=== PATIENT | female | born 1945 | race Caucasian/White ===

== ENCOUNTER 2019-12-28 09:39 | Outpatient (CLI) | payer OTHER, SELFPAY ==
--- NOTE | 2019-12-28 09:52 | MM_ITS ---
WS: [id number] BILATERAL DIGITAL SCREENING MAMMOGRAPHY WITH CAD CLINICAL INFORMATION: SCREENING HISTORY: Screening mammogram. No current complaints. COMPARISON: December 02, 2018 TECHNIQUE: Bilateral CC and MLO views. FINDINGS: The breasts are composed of heterogeneous fibroglandular density tissue, which can limit the detectio n of small underlying mass lesions. No suspicious mass, asymmetry, calcifications, or architectural d istortion. No evidence of malignancy. Vascular calcification. Lucent centered calcifications. MM/[place] [id number] IMPRESSION: BI-RADS: 2-Benign FOLLOW UP: 1 Year Follow-up Recommend return to annual screening mammography.
== END 2019-12-28 09:40 | disposition home or self-care (01) ==
LOC: RADSHAW 09:44
PROVIDERS: PCP Nurse Practitioner Family; Visit Provider Nurse Practitioner Family
DX: Z12.31 Encounter for screening mammogram for malignant neoplasm of breast (principal)
CPT/HCPCS: 77067

== ENCOUNTER → 2020-03-15 09:45 | Outpatient (BNVA) | payer OTHER, SELFPAY | PROVIDERS: PCP Nurse Practitioner Family; Visit Provider Nurse Practitioner Family | DX: R10.2 Pelvic and perineal pain (principal); N39.0 Urinary tract infection, site not specified | CPT/HCPCS: 80053; 81003; 87086 ==

== ENCOUNTER → 2020-04-04 12:04 | Outpatient (BNVA) | payer OTHER, SELFPAY | PROVIDERS: PCP Nurse Practitioner Family; Visit Provider Nurse Practitioner Family | DX: Z12.4 Encounter for screening for malignant neoplasm of cervix (principal); L43.0 Hypertrophic lichen planus | CPT/HCPCS: 87070; 87205; 88175 ==

== ENCOUNTER → 2020-09-06 12:58 | Outpatient (BNVA) | payer OTHER, SELFPAY | PROVIDERS: PCP Nurse Practitioner Family; Referring Provider Nurse Practitioner Family; Visit Provider Podiatrist Foot & Ankle Surgery | DX: M21.611 Bunion of right foot (principal); M21.612 Bunion of left foot; M20.41 Other hammer toe(s) (acquired), right foot; M20.42 Other hammer toe(s) (acquired), left foot; M79.671 Pain in right foot; L84 Corns and callosities | CPT/HCPCS: 73630 ==

== ENCOUNTER → 2020-11-12 10:38 | Outpatient (BNVA) | payer OTHER, SELFPAY | PROVIDERS: PCP Nurse Practitioner Family; Visit Provider Nurse Practitioner | DX: N39.0 Urinary tract infection, site not specified (principal); M54.9 Dorsalgia, unspecified | CPT/HCPCS: 81000 ==

== ENCOUNTER 2021-01-14 16:48 | Emergency (ER) | payer OTHER, SELFPAY ==
[2021-01-14 17:01] VITALS: BP 155/70; PULSE 62; RESP 18; TEMP 36.8; O2SAT 96; BMI 21.1
--- NOTE | 2021-01-14 17:18 | XRR_ITS ---
PROCEDURE INFORMATION: Exam: XR Chest Exam date and time: 01/14/2021 5:18 PM Age: 75 years old Clinical indication: Abnormal findings; Abnormal ekg; Additional info: Chest pain TECHNIQUE: Imaging protocol: XR of the chest. Views: 1 view. Total images: 1 COMPARISON: CT chest w con* [id number] 05/01/2016 12:52 PM FINDINGS: Lungs: No visible active interstitial or alveolar airspace disease. COPD/chronic bronchitis. Mild senile fibrosis lung bases. Calcified granulomas of antecedent disease. Pleural spaces: Unremarkable. No pleural effusion. No pneumothorax. Heart/Mediastinum: Cardiac structures and configuration with arteriosclerosis. Bones/joints: Scoliosis. XR/XR chest 1V portable [id number] IMPRESSION: Nonacute.
--- NOTE | 2021-01-14 17:18 | ECG_ITS ---
[facility] Test Date: 2021-01-14 Pat Name: Rima Burns Department: Room: Gender: Female [employer]: kayleigh : 1945 Requested By: Britney Du Order Number: [id number] Joe MD: Niurka Mcmahan M.D. Measurements Intervals Grandy Rate: 76 P: 43 NC: 132 QRS: -10 QRSD: 88 T: 20 QT: 390 QTc: 439 Interpretive Statements SINUS RHYTHM WITH OCCASIONAL VENTRICULAR PREMATURE COMPLEXES POSSIBLE LEFT ATRIAL ENLARGEMENT [-0.1mV P WAVE IN V1/V2] No previous ECG available for comparison Electronically Signed On 01-14-2021 19:50:52 CDT by Niurka Mcmahan M.D. [email or web address]
== END 2021-01-14 21:38 | disposition left against medical advice (07) ==
PROVIDERS: Emergency Provider Family Medicine; PCP Nurse Practitioner Family
DX: R94.31 Abnormal electrocardiogram [ECG] [EKG] (principal); Z53.21 Procedure and treatment not carried out due to patient leaving prior to being seen by health care provider
CPT/HCPCS: 71045; 81003; 93005

== ENCOUNTER 2021-01-30 10:07 | Outpatient (CLI) | payer OTHER, SELFPAY ==
--- NOTE | 2021-01-30 10:12 | MM_ITS ---
WS: [id number] BILATERAL SCREENING DIGITAL MAMMOGRAM WITH CAD HISTORY: SCREENING COMPARISON: 12/28/2019, 11/06/2017 and 12/02/2018 Bilateral CC and MLO views submitted. Computer aided detection analyzed. Breast composition: There are scattered areas of fibroglandular density. No suspicious masses, microc alcifications or architectural distortion. Asymmetry in the anterior RIGHT breast was present in 2018 and stable. MM/[place] [id number] IMPRESSION: BI-RADS: 2-Benign FOLLOW UP: 1 Year Follow-up
== END 2021-01-30 10:08 | disposition home or self-care (01) ==
LOC: RADSHAW 10:10
PROVIDERS: PCP Nurse Practitioner Family; Visit Provider Nurse Practitioner Family
DX: Z12.31 Encounter for screening mammogram for malignant neoplasm of breast (principal)
CPT/HCPCS: 77067

== ENCOUNTER 2021-03-06 14:58 | Outpatient (CLI) | payer OTHER, SELFPAY ==
--- NOTE | 2021-03-06 15:00 | USCV_ITS ---
Rima Burns Age: 75 Gender: F : 1945 Exam Date: 03/06/2021 15:17 Ordering Phys: Raciel Gomez M.D ([email or web address]) Technologist: Chastity Maria [place] [facility] [place]: POST COVID BP: / HR: 68 Rhythm: Sinus Technical Quality: Adequate MEASUREMENTS (Male / Female) Normal Values 2D ECHO LV Diastolic Diameter PLAX 3.8 cm 4.2 - 5.9 / 3.9 - 5.3 cm LV Systolic Diameter PLAX 3.4 cm LV Chamber Size 3.8 cm IVS Diastolic Thickness 1.0 cm 0.6 - 1.0 / 0.6 - 0.9 cm IVS Systolic Thickness 1.3 cm LVPW Diastolic Thickness 1.1 cm 0.6 - 1.0 / 0.6 - 0.9 cm LVPW Systolic Thickness 1.4 cm RV Chamber Size 3.7 cm LVOT Diameter 2.0 cm LV Ejection Fraction 2D Teich 3.0 % LV Ejection Fraction MOD 2C 67.8 % LV Ejection Fraction 2C AL 67.0 % LA Diameter 2.6 cm LA Width 2.9 cm LA Height 3.5 cm RA Width 4.3 cm RA Height 3.4 cm Aorta at Sinotubular Diameter 3.2 cm M-MODE LV Diastolic Diameter MM 4.0 cm 4.2 - 5.9 / 3.9 - 5.3 cm LV Systolic Diameter MM 2.1 cm LV Ejection Fraction MM Teich 79.0 % IVS Diastolic Thickness MM 0.8 cm 0.6 - 1.0 / 0.6 - 0.9 cm IVS Systolic Thickness MM 1.2 cm LVPW Diastolic Thickness MM 0.8 cm 0.6 - 1.0 / 0.6 - 0.9 cm LVPW Systolic Thickness MM 1.5 cm MV E Point Septal Separation 0.2 cm DOPPLER AV Peak Velocity 126.0 cm/s LVOT Peak Velocity 104.0 cm/s AV Area Cont Eq vti 2.6 cm squared AV Area Cont Eq pk 2.6 cm squared MV Area PHT 3.7 cm squared Mitral E to A Ratio 1.2 MV E' Velocity 51.0 cm/s Mitral E to MV E' Ratio 7.7 Mitral E to LV E' Lateral Ratio 9.9 Mitral E to LV E' Septal Ratio 6.4 TR Peak Velocity 253.7 cm/s TR Peak Gradient 25.8 mmHg TR Mean Velocity 192.6 cm/s TR Mean Gradient 16.2 mmHg TR Velocity Time Integral 76.8 cm PV Peak Velocity 81.0 cm/s FINDINGS Left Ventricle Normal left ventricular size. LV systolic function is normal with EF of 55-60%. No regional wall motion abnormalities. Normal diastolic filling pattern. Right Ventricle The right ventricle is normal in size and function. Right Atrium The right atrium is normal in size. Left Atrium The left atrium is normal in size. Mitral Valve Structurally normal mitral valve without significant stenosis or prolapse. There is trace mitral regurgitation. Aortic Valve Structurally normal aortic valve without significant sclerosis or stenosis. There is no aortic regurgitation. Tricuspid Valve Structurally normal tricuspid valve without significant stenosis. Mild tricuspid regurgitation. Pulmonary artery systolic pressure is normal. Pulmonic Valve Structurally normal pulmonic valve without significant stenosis. There is no pulmonic regurgitation. Pericardium Normal pericardium without effusion. Aorta Normal ascending aorta dimension. CONCLUSIONS LV systolic function is normal with EF of 55-60% Diastolic function is normal Trace mitral regurgitation Trace tricuspid regurgitation No comparison studies are available Raciel Gomez MD (Electronically Signed) Final Date: 09 March 2021 21:33 S
== END 2021-03-06 14:59 | disposition home or self-care (01) ==
LOC: RAD 15:04
PROVIDERS: PCP Nurse Practitioner Family; Visit Provider Internal Medicine
DX: R06.02 Shortness of breath (principal); R00.1 Bradycardia, unspecified; Z86.16 Personal history of COVID-19
CPT/HCPCS: 93306

== ENCOUNTER 2022-06-06 10:37 | Outpatient (CLI) | payer OTHER, SELFPAY ==
--- NOTE | 2022-06-06 10:47 | MM_ITS ---
WS: [id number] BILATERAL SCREENING DIGITAL TOMOSYNTHESIS MAMMOGRAM WITH CAD HISTORY: SCREENING COMPARISON: 01/31/2020 06/18/2019 Bilateral CC and MLO views with tomosynthesis and synthetic mammography submitted. Computer aided det ection analyzed. Breast composition: There are scattered areas of fibroglandular density. No suspicious masses, microc alcifications or architectural distortion. Benign calcifications RIGHT breast. MM/[place] [id number] IMPRESSION: BI-RADS: 2-Benign FOLLOW UP: 1 Year Follow-up
== END 2022-06-06 10:38 | disposition home or self-care (01) ==
PROVIDERS: PCP Nurse Practitioner Family; Visit Provider Nurse Practitioner Family
DX: Z12.31 Encounter for screening mammogram for malignant neoplasm of breast (principal)
CPT/HCPCS: 77063; 77067

== ENCOUNTER 2022-10-09 05:47 | Day surgery (SDC) | payer OTHER, SELFPAY ==
[2022-10-07 14:37] VITALS: BMI 21.9
[2022-10-09 06:04] VITALS: BP 133/73; PULSE 69; RESP 18; TEMP 36.2; O2SAT 96
[2022-10-09] MEDS: sodium chloride 0.9% 1,000 ML 30 ML IV (06:11)
--- NOTE | 2022-10-09 06:40 | P.ANESASSM_ITS ---
Pre-Anesthetic Assessment Height/Weight: Height 1.65 m Weight 59.874 kg Temp Pulse Resp BP Pulse Ox O2 Del Method 97.1 F L 69 18 133/73 96 Room Air 10/09/22 06:04 10/09/22 06:04 10/09/22 06:04 10/09/22 06:04 10/09/22 06:04 10/09/22 06:04 Operation Date: 10/09/22 07:30 Proposed Procedures p 13307 colon K63.5(Not Applicable) - Minh Estrada DO Familial anesthetic complications: None Was Beta Abdiel taken within 24 hours: N/A Was Clonidine taken within 24 hours: N/A Last intake: Intake Last Liquid Date 10/08/22 Last Liquid Time 22:00 Last Solid Date 10/07/22 Social No alcohol and No tobacco Exam alert, oriented x 3, clear to auscultation bilaterally and regular rate & rhythm Airway Submandibular: within normal limits Cervical ROM: within normal limits Mallampati: Class II Dentition: false (Upper) History/ROS No significant history except as noted and No significant complaints Pulmonary Shortness of Breath CV/HEM Arrythmia (Bradycardia: wore a holter monitor; no interventions) Mitral regurgitation None reported Hepatic None reported GI Hiatal Hernia History of colon polyps Metabolic None reported Musc/skel Lower Back Pain and Osteoarthritis/DJD Neuropsych Anxiety and Depression Anesthetic Plan ASA status: 2 Anesthesia: Anesthesia Evaluation, General and MAC Risk of > 500 ml blood loss (7ml/kg in children): No Medications/Allergies Home Medications Medication Instructions Recorded Confirmed Last Taken Type probiotic acidophilus 2 tab PO DAILY 03/05/22 10/07/22 10/08/22 History ascorbic acid (vitamin C) 1,000 mg 1 g PO DAILY 03/05/22 10/07/22 10/08/22 History capsule cholecalciferol (vitamin D3) 125 125 mcg PO DAILY 03/05/22 10/07/22 10/08/22 History mcg (5,000 unit) capsule zinc gluconate 50 mg tablet 50 mg PO DAILY 03/05/22 10/07/22 10/08/22 History escitalopram oxalate 10 mg tablet 10 mg PO DAILY 90 days #90 tabs 07/31/22 10/07/22 10/08/22 Rx brimonidine 0.1 % eye drops 1 drp ophthalmic (eye) BID 10/07/22 10/07/22 10/08/22 History (Alphagan P) budesonide 90 mcg/actuation breath 1 inh inhalation BID 10/07/22 10/07/22 10/08/22 History activated powder inhaler (Pulmicort Flexhaler) latanoprost 0.005 % eye drops 1 drp ophthalmic (eye) BEDTIME 10/07/22 10/07/22 10/08/22 History Allergies Allergy/AdvReac Type Severity Reaction Status Date / Time No Known Allergies Allergy Verified 10/09/22 06:04 Current Medications Generic Name Dose Route Start Last Admin Trade Name Freq PRN Reason Stop Dose Admin Sodium Chloride 1,000 mls @ 30 mls/hr 10/09/22 06:00 10/09/22 06:11 Sodium Chloride 0.9% IV 10/10/22 05:59 30 mls/hr .Q24H MADELYN Administration PFSH Anesthesia Medical History (Updated 10/02/22 @ 07:09 by Minh Estrada DO) Acute bacterial sinusitis Anxiety and depression Bradycardia Cough Encounter for Papanicolaou smear for cervical cancer screening Environmental and seasonal allergies Fever blister GERD (gastroesophageal reflux disease) Hallux valgus (acquired), right foot Hypertrophic lichen planus of vulva Lower respiratory infection Lower respiratory infection Pelvic pain Shortness of breath UTI (urinary tract infection), bacterial Surgical History (Updated 10/02/22 @ 07:08 by Minh Estrada DO) Hx of colonoscopy with polypectomy 2013 2015 at [facility] [place] Hx of esophagogastroduodenoscopy S/P appendectomy Family History Denies family history of Diabetes Cancer Hypertension Social History Smoking and tobacco status: former smoker Alcohol intake: never Substance/Drug Use: never Data Anesthesia Cardiac Studies: Echocardiogram 03/06/21 Cardiac Event Monitor 01/16/21
--- NOTE | 2022-10-09 07:32 | PM.HP ---
Providers/Chief Complaint Primary Care Provider: SWAPNA Rowland Chief Complaint: 75404 K63.5 History of Present Illness Rima Burns is a 77 year old female is here for a screening colonoscopy Medications/Allergies Home Medications Medication Instructions Recorded Confirmed Last Taken Type probiotic acidophilus 2 tab PO DAILY 03/05/22 10/07/22 10/08/22 History ascorbic acid (vitamin C) 1,000 mg 1 g PO DAILY 03/05/22 10/07/22 10/08/22 History capsule cholecalciferol (vitamin D3) 125 125 mcg PO DAILY 03/05/22 10/07/22 10/08/22 History mcg (5,000 unit) capsule zinc gluconate 50 mg tablet 50 mg PO DAILY 03/05/22 10/07/22 10/08/22 History escitalopram oxalate 10 mg tablet 10 mg PO DAILY 90 days #90 tabs 07/31/22 10/07/22 10/08/22 Rx brimonidine 0.1 % eye drops 1 drp ophthalmic (eye) BID 10/07/22 10/07/22 10/08/22 History (Alphagan P) budesonide 90 mcg/actuation breath 1 inh inhalation BID 10/07/22 10/07/22 10/08/22 History activated powder inhaler (Pulmicort Flexhaler) latanoprost 0.005 % eye drops 1 drp ophthalmic (eye) BEDTIME 10/07/22 10/07/22 10/08/22 History Allergies Allergy/AdvReac Type Severity Reaction Status Date / Time No Known Allergies Allergy Verified 10/09/22 06:04 PFSH Acute PFSH: Medical History (Updated 10/02/22 @ 07:09 by Minh Estrada DO) Acute bacterial sinusitis Anxiety and depression Bradycardia Cough Encounter for Papanicolaou smear for cervical cancer screening Environmental and seasonal allergies Fever blister GERD (gastroesophageal reflux disease) Hallux valgus (acquired), right foot Hypertrophic lichen planus of vulva Lower respiratory infection Lower respiratory infection Pelvic pain Shortness of breath UTI (urinary tract infection), bacterial Surgical History (Updated 10/02/22 @ 07:08 by Minh Estrada DO) Hx of colonoscopy with polypectomy 2013 2015 at [facility] [place] Hx of esophagogastroduodenoscopy S/P appendectomy Family History Denies family history of Diabetes Cancer Hypertension Social History Smoking and tobacco status: former smoker Alcohol intake: never Substance/Drug Use: never Vitals/I&O/Wt Last Vital Signs Temp 97.1 F L 10/09/22 06:04 Pulse 69 10/09/22 06:04 Resp 18 10/09/22 06:04 BP 133/73 10/09/22 06:04 Pulse Ox 96 10/09/22 06:04 O2 Del Method Room Air 10/09/22 06:04 Weight last 48 hrs Weight 132 lb A&P Assessment and plan (1) Colon cancer screening: Plan Colonoscopy Attestations Medical Necessity Statement*: Home Coding Level of Care Code Acute Code for Chg Fwd Diagnoses Colon cancer screening Z12.11
[2022-10-09 07:59] VITALS: BP 126/71; PULSE 64; RESP 12; TEMP 36.3; O2SAT 92
[2022-10-09 08:12] VITALS: BP 136/81; PULSE 56; RESP 16; O2SAT 93
[2022-10-09 08:29] VITALS: BP 138/92; PULSE 56; RESP 18; O2SAT 94
--- NOTE | 2022-10-09 17:18 | ANE.PACU2 ---
Inpatient post-anesthesia follow up: Airway intact: Yes Vital signs: Temperature 97.3 F Pulse Rate 56 Respiratory Rate 18 Blood Pressure 138/92 Pulse Oximetry 94 Oxygen Delivery Me thod Room Air Oxygen Flow Rate 2 Fraction of Inspir ed Oxygen Hydration adequate: Yes Nausea and vomiting: No Pain level: 1 Mental status: Baseline
== END 2022-10-09 08:32 | disposition home or self-care (01) ==
PROVIDERS: PCP Registered Nurse; Visit Provider Surgery
PROC: 0DJD8ZZ Inspection of Lower Intestinal Tract, Via Natural or Artificial Opening Endoscopic (ICD-10-PCS; CPT 45378; principal; 2022-10-09 07:30)
DX: Z86.010 Personal history of colon polyps (principal); Z12.11 Encounter for screening for malignant neoplasm of colon; R06.02 Shortness of breath; K44.9 Diaphragmatic hernia without obstruction or gangrene; F41.9 Anxiety disorder, unspecified; F32.A Depression, unspecified; Z87.891 Personal history of nicotine dependence; K57.30 Diverticulosis of large intestine without perforation or abscess without bleeding; K64.8 Other hemorrhoids
CPT/HCPCS: 45378; J2704; J7030

== ENCOUNTER → 2023-03-16 10:28 | Outpatient (BNVA) | payer OTHER, SELFPAY | PROVIDERS: PCP Registered Nurse; Visit Provider Registered Nurse | DX: R42 Dizziness and giddiness (principal); G43.909 Migraine, unspecified, not intractable, without status migrainosus | CPT/HCPCS: 87400; 87426 ==

== ENCOUNTER 2023-07-16 11:08 | Outpatient (CLI) | payer OTHER, SELFPAY ==
--- NOTE | 2023-07-16 12:22 | MM_ITS ---
WS: [id number] BILATERAL SCREENING DIGITAL TOMOSYNTHESIS MAMMOGRAM WITH CAD HISTORY: SCREENING COMPARISON: 06/06/2022, 01/30/2021 Bilateral CC and MLO views with tomosynthesis and synthetic mammography submitted. Computer aided det ection analyzed. Breast composition: There are scattered areas of fibroglandular density. No suspicious masses, microc alcifications or architectural distortion. Benign calcifications RIGHT breast. IMPRESSION: MM/[place] [id number] BI-RADS: 2-Benign FOLLOW UP: 1 Year Follow-up
== END 2023-07-16 11:09 | disposition home or self-care (01) ==
LOC: RAD 11:08
PROVIDERS: PCP Nurse Practitioner Family; Visit Provider Nurse Practitioner Family
DX: Z12.31 Encounter for screening mammogram for malignant neoplasm of breast (principal); R92.323 Mammographic fibroglandular density, bilateral breasts
CPT/HCPCS: 77063; 77067

== ENCOUNTER → 2024-07-29 08:34 | Outpatient (BNVA) | payer OTHER, SELFPAY | PROVIDERS: PCP Registered Nurse; Visit Provider Nurse Practitioner Family | DX: R30.0 Dysuria (principal); B00.1 Herpesviral vesicular dermatitis; N39.0 Urinary tract infection, site not specified; F41.9 Anxiety disorder, unspecified; F32.9 Major depressive disorder, single episode, unspecified; R31.9 Hematuria, unspecified | CPT/HCPCS: 81000; 81003 ==

== ENCOUNTER 2024-08-03 10:18 | Outpatient (CLI) | payer OTHER, SELFPAY ==
--- NOTE | 2024-08-03 10:20 | MM_ITS ---
WS: [id number] Bilateral screening 3D tomosynthesis digital mammogram, 08/03/2024 10:27 AM Clinical Data: SCREENING Comparison: 01/14/2024, 06/06/2022, 01/30/2021, 12/28/2019, 12/02/2018, 11/06/2017, 10/31/2016, 10/30/2015, 10/24/2014, 10/11/2013, 10/04/2012, 08/22/2011, 08/14/2009, 08/11/2008, 08/10/2007. Findings: No spiculated masses or clustered calcifications are seen. There are no secondary signs of carcinoma. MM/MM scr BI tomosynthesis [id number] Impression: Negative bilateral mammogram unchanged. Recommend annual screening mammograms. BIRADS: 1 - Negative FOLLOW UP: 1 Year Follow-up DENSITY: The breasts are heterogeneously dense, which may obscure small masses. The CAD truckload checker was used
== END 2024-08-03 10:19 | disposition home or self-care (01) ==
LOC: MOBLMAM 10:22
PROVIDERS: PCP Nurse Practitioner Family; Visit Provider Nurse Practitioner Family
DX: Z12.31 Encounter for screening mammogram for malignant neoplasm of breast (principal); R92.333 Mammographic heterogeneous density, bilateral breasts
CPT/HCPCS: 77063; 77067

== ENCOUNTER → 2024-08-09 11:25 | Outpatient (BNVA) | payer OTHER, SELFPAY | PROVIDERS: PCP Nurse Practitioner Family; Visit Provider Nurse Practitioner Family | DX: E55.9 Vitamin D deficiency, unspecified (principal); B00.1 Herpesviral vesicular dermatitis; R31.9 Hematuria, unspecified; Z79.899 Other long term (current) drug therapy; Z13.6 Encounter for screening for cardiovascular disorders; N39.0 Urinary tract infection, site not specified | CPT/HCPCS: 74018; 80053; 80061; 81003; 82306; 83036; 84443; 85025; 87086 ==

== ENCOUNTER → 2025-01-09 12:04 | Outpatient (BNVA) | payer OTHER, SELFPAY | PROVIDERS: PCP Nurse Practitioner Family; Visit Provider Nurse Practitioner Family | DX: R05.3 Chronic cough (principal); Z86.16 Personal history of COVID-19 | CPT/HCPCS: 71046; 81003 ==

== ENCOUNTER 2025-01-19 15:25 | Outpatient (CLI) | payer OTHER, SELFPAY ==
[2025-01-19] MEDS: iohexol 350 mg/mL 500 mL Btl (per mL) PO (15:56)
[2025-01-19 16:09] LABS: Blood Urea Nitrogen 11 mg/dL (8-23)
[2025-01-19] MEDS: iohexol 350 mg/mL 500 mL Btl (per mL) IV (16:26)
--- NOTE | 2025-01-19 16:30 | CT_ITS ---
WS: [id number] CT CHEST, ABDOMEN AND PELVIS WITH AND WITHOUT CONTRAST HISTORY: N20.0 - Calculus of kidney TECHNIQUE: Contiguous 5 mm axial imaging performed through the chest, abdomen and pelvis with and without IV contrast, oral contrast has been provided. Coronal and sagittal reformats chest. Coronal and sagittal reformats through the abdomen and pelvis. All CT scans at [facility] use at least one of these dose optimization techniques: automated exposure control; mA and/or kV adjustment per patient size (includes targeted exams where dose is matched to clinical indication); or iterative reconstruction. CONTRAST: Omnipaque 350; 100 mL IV. DLP: 514.61 mGy.cm COMPARISON: Chest CT 05/01/[address]: Lungs are hyperinflated with emphysema. Calcified granuloma LEFT lower lobe. No pulmonary mass, nodule or pneumonia. Mild reticular nodular changes and new in the LEFT upper lobe. Mild biapical pleural thickening and scarring. Mild atherosclerosis aorta. Normal sized pulmonary artery and aorta. Normal size heart. No pericardial or pleural effusions. RIGHT hilar lymph node measures 1.8 cm. Similar lymph node was present on 05/01/2016. No chest wall abnormality. Abdomen CT: Noncontrast exam positive for a 4 mm nonobstructing calcification in the RIGHT renal pelvis. Splenic granulomata. Mild atherosclerosis abdominal aorta with ectasia. Not aneurysmal. Small hiatal hernia. Normal size liver and spleen. Normal portal vein. No masses. Normal gallbladder and adrenal glands. Normal pancreas. No renal obstruction. No mass. Stomach is well distended with oral contrast. No small bowel obstruction. Moderate diffuse constipation. Prior appendectomy. Numerous diverticula in the sigmoid colon. No acute inflammation. No ascites or adenopathy. Pelvic CT: Uterus is midline with mild atrophy. Junctional zone calcifications and peripheral calcifications are probably phleboliths. No free fluid. Urinary bladder is negative. No masses within the pelvis. Reverse S-shaped scoliosis lumbar spine. No destructive bone lesions. Advanced degenerative changes at the thoracolumbar junction. L4 anterolisthesis by [address]/CT abdpel wo/w [id number] IMPRESSION: 1. Mild tree-in-bud airspace disease/reticular nodular opacifications LEFT upp er lobe new since 2016. May be chronic or related to endobronchial pneumonia. 2. Stable RIGHT hilar lymph node since 2016 measures 1.8 cm. 3. Chronic emphysema. 4. Nonobstructing 4 mm calcification RIGHT renal pelvis. 5. No hydronephrosis. 6. Sigmoid diverticulosis. No evidence for acute diverticulitis by imaging. 7. No free fluid or adenopathy. 8. No GI tract obstruction or colitis. 9. Diffuse constipation. 10. Prior appendectomy.
== END 2025-01-19 15:26 | disposition home or self-care (01) ==
LOC: RAD 15:27
PROVIDERS: PCP Nurse Practitioner Family; Visit Provider Nurse Practitioner Family
DX: J43.9 Emphysema, unspecified (principal); R06.02 Shortness of breath; R05.3 Chronic cough; Z86.16 Personal history of COVID-19; K59.09 Other constipation; N28.89 Other specified disorders of kidney and ureter; K57.30 Diverticulosis of large intestine without perforation or abscess without bleeding
CPT/HCPCS: 71260; 74178; 82565; 84520

== ENCOUNTER → 2025-04-11 09:07 | Outpatient (BNVA) | payer OTHER, SELFPAY | PROVIDERS: PCP Nurse Practitioner Family; Visit Provider Nurse Practitioner Family | DX: R30.0 Dysuria (principal) | CPT/HCPCS: 81003; 87086 ==